=== PATIENT | female | born 1960 | race Two or more races ===

== ENCOUNTER 2023-11-05 21:26 | Emergency (ER) | payer MEDICAID, OTHER ==
[~2023-11-05] VITALS: Ht 154.9 cm; Wt 68.0 kg
[~2023-11-05 21:26] MED LIST: HYDR-4354 PO; MECL-159 PO
[2023-11-05 22:35] LABS: *BILIRUBIN,URIN NEGATIVE (NEGATIVE); *CLARITY,URINE CLEAR (CLEAR); *COLOR,URINE YELLOW (YELLOW); *KETONES,URINE NEGATIVE (NEGATIVE); *PROTEIN,URINE NEGATIVE (NEGATIVE); *UROBILINOGEN,URINE 0.2 E.U./dl (NORMAL); LEUKOCYTE ESTERASE ,URINE 1+ (NEGATIVE); NITRITE, URINE NEGATIVE (NEGATIVE); UGLUCOSE NEGATIVE (NEGATIVE)
[2023-11-05 22:41] LABS: *BLOOD, URINE TRACE INTACT (NEGATIVE)
[2023-11-05] MEDS: IV NORMAL SALINE 500 ML BAG IV ONE (22:49)
[2023-11-05] MEDS ORDERED: ONDANSETRON 4 MG/2 ML VIAL ONE (22:52)
[2023-11-05] MEDS ORDERED: KETOROLAC TROMETHAMINE 15 MG INJ ONE (22:52)
[2023-11-05 22:56] LABS: BACTERIA,URINE NONE SEEN /HPF (NONE SEEN); SQUAMOUS EPITHELIAL CELL,UR FEW /HPF (NONE SEEN); WBC,URINE 0-3 /HPF (0-3)
[2023-11-05] MEDS: ONDANSETRON 4 MG/2 ML VIAL IV ONE (22:56)
[2023-11-05] MEDS: KETOROLAC TROMETHAMINE 15 MG INJ IVP ONE (22:57)
[2023-11-05 23:12] LABS: ALBUMIN 3.7 g/dL (3.4-5.0); BILIRUBIN,DIRECT 0.1 mg/dL (0.0-0.2); BILIRUBIN,TOTAL 0.4 mg/dL (0.2-1.0); CALCIUM 8.8 mg/dL (8.5-10.1); CREATININE 0.9 mg/dL (0.6-1.3); POTASSIUM 3.7 mmol/L (3.5-5.1); TOTAL PROTEIN, SERUM 7.2 g/dL (6.4-8.2)
[2023-11-06 00:16] LABS: BASOPHILS % (AUTO) 0.4 % (0.0-2.0); EOSINOPHILS # (AUTO) 0.1 K/uL (0.0-0.7); EOSINOPHILS % (AUTO) 1.7 % (0.0-7.0); HEMATOCRIT 37.9 % (31.2-41.9); HEMOGLOBIN 12.5 g/dL (10.9-14.3); LYMPHOCYTES # (AUTO) 2.6 K/uL (0.8-4.8); LYMPHOCYTES % (AUTO) 36.1 % (20.5-51.5); MEAN CORPUSCULAR HEMOGLOBIN 28.3 uug (24.7-32.8); MEAN CORPUSCULAR HGB CONC 33 g/dL (32.3-35.6); MEAN CORPUSCULAR VOLUME 85.9 fL (75.5-95.3); MONOCYTES # (AUTO) 0.5 K/uL (0.1-1.30); MONOCYTES % (AUTO) 6.2 % (0.0-11.0); NEUTROPHILS # (AUTO) 4.1 K/uL (1.8-8.9); NEUTROPHILS % (AUTO) 55.6 % (38.5-71.5); PLATELET COUNT (AUTO) 214 K/uL (179-408); RED BLOOD CELL COUNT(AUTO) 4.41 MIL/uL (3.63-4.92); RED CELL DISTRIBUTION WIDTH 13.7 % (12.3-17.7); WHITE BLOOD COUNT (AUTO) 7.3 K/uL (3.8-11.8)
[2023-11-06 00:19] LABS: DIFFERENTIAL COMMENT 1
[2023-11-06] MEDS ORDERED: NITR100C6 PO (00:44)
[2023-11-06] MEDS ORDERED: PHEN-704 PO (00:44)
[2023-11-06 00:59] VITALS: BP 142/70; TEMP 98.6; O2SAT 99
== END 2023-11-06 01:01 | disposition home or self-care (01) ==
LOC: ER 21:30
DX: N39.0 Urinary tract infection, site not specified (principal); R30.0 Dysuria; E86.0 Dehydration; E03.0 Congenital hypothyroidism with diffuse goiter; R10.12 Left upper quadrant pain; R11.0 Nausea; R19.7 Diarrhea, unspecified; E03.9 Hypothyroidism, unspecified; Z79.891 Long term (current) use of opiate analgesic; Z79.899 Other long term (current) drug therapy
CPT/HCPCS: 99285; 74176; 96374; 96361; 96375; 80076; 80048; 81001; 83690; 84443; 85025; 36415; 87086; J1885; J2405; J7040; A4606; A4663